=== PATIENT | female | born 1960 | race Caucasian/White ===

== ENCOUNTER → 2016-12-03 | Outpatient (CLI) | payer BC ==
[~2016-12-03] MED LIST: AMBIEN 5MG TABLE5 MG PO; ATIVAN 0.50.5 MG/TAB PO; BACTRIM DS 8001 TAB PO; CENESTIN0.9 MG PO; CENESTIN1.25 MG PO; CEPHALEXIN500 M1 PO; DIFLUCAN150 MG PO; DOXYCYCLINE 10100 MG PO; HORMONE REPLACEMENT; LIPITOR20 MG PO; PHENERGAN 25 TA25 MG PO; VESICARE 5MG5 MG PO; ZOCOR; ZOLOFT; ZOLOFT 100MG100 MG PO; [UNRECOGNIZED DRUG - REMARK]
== END ==
LOC: MC.RAD 08:14
DX: Z12.31 Encounter for screening mammogram for malignant neoplasm of breast (principal); Z80.3 Family history of malignant neoplasm of breast

== ENCOUNTER 2017-10-02 10:06 | Emergency (ER) | payer BC ==
[2008-04-23 06:02] VITALS: BP 121/64
[~2017-10-02] VITALS: Ht 170.2 cm; Wt 56.8 kg
[2017-10-02] MEDS ORDERED: LINZESS290CAP PO (10:53)
[2017-10-02] MEDS ORDERED: KLONOPIN 0.5MG0.5 MG PO (11:09)
[2017-10-02] MEDS ORDERED: CYMBALTA 60MG60 MG PO (11:10)
[2017-10-02] MEDS ORDERED: TOPAMAX 25MG25 M1 PO (11:11)
[2017-10-02] MEDS ORDERED: WELLBUTRIN SR100 M1 PO (11:11)
[2017-10-02] MEDS ORDERED: MYRBETR50MG PO (11:12)
[2017-10-02] MEDS ORDERED: COMPAZINE25 MG/SUPP RC (11:12)
[2017-10-02] MEDS ORDERED: PREMARIN 1.251.25 MG PO (11:13)
[2017-10-02 11:14] LABS: MEAN CELL VOLUME 97 fl (80.0-100.0); MEAN CORPUSCULAR HGB CONC 34 g/dl (33.0-37.0); MEAN PLATELET VOLUME 10.3 fl (7.4-10.4); PLATELET COUNT 216 K/mm3 (130-400); RED BLOOD COUNT 3.51 M/mm3 (4.10-5.30); REDCELL DISTRIBUTION WIDTH-CV 12.1 % (11.5-14.5)
[2017-10-02] MEDS ORDERED: OMEGA-31 SGL PO (11:14)
[2017-10-02 11:15] LABS: HEMATOCRIT 33.9 % (37.0-47.0); HEMOGLOBIN 11.5 g/dl (12.5-16.0); MEAN CORPUSCULAR HEMOGLOBIN 33 pg (27.0-31.0)
[2017-10-02] MEDS ORDERED: VITAMIND3 5000 PO (11:15)
[2017-10-02] MEDS ORDERED: BIOTIN2500 MCG PO (11:15)
[2017-10-02] MEDS ORDERED: THE MEDICINE S200 M2 PO (11:16)
[2017-10-02] MEDS ORDERED: STOOL SOFTENER100 M2 PO (11:16)
[2017-10-02] MEDS ORDERED: MULTI VITAMINS1 TAB PO (11:16)
[2017-10-02] MEDS ORDERED: DULCOLAX TAB5 MG PO (11:17)
[2017-10-02] MEDS ORDERED: VITAMIN B125000 MCG PO (11:17)
[2017-10-02 11:27] LABS: ALBUMIN 3.6 gm/dL (3.5-5.0); BILIRUBIN,TOTAL 0.6 mg/dL (0.0-1.0); C-REACTIVE PROTEIN 5.1 mg/dL (0.0-0.9); CREATININE, serum 0.77 mg/dL (0.52-1.25); POTASSIUM 3.7 mmol/L (3.4-5.0); TOTAL PROTEIN 6.6 gm/dL (6.4-8.2)
[2017-10-02 11:32] LABS: CALCIUM 8.5 mg/dL (8.4-10.2); INFLUENZA A NEGATIVE; INFLUENZA B NEGATIVE
[2017-10-02 11:37] LABS: BAND 26 % (0-10); LYMPHOCYTE 4 % (20.0-51.0); NEUTROPHILS 64 % (42.0-75.2)
[2017-10-02 11:38] LABS: PLATELET ESTIMATE NORMAL (NORMAL)
[2017-10-02] MEDS ORDERED: LEVAQUIN 750MG750 M1 PO ×2 (12:25→12:53)
[2017-10-02 12:46] VITALS: BP 101/60; PULSE 81; TEMP 98.3
== END 2017-10-02 12:56 | disposition home or self-care (01) ==
LOC: COL.ER 10:06
PROVIDERS: Emergency Medicine
DX: J18.1 Lobar pneumonia, unspecified organism (principal); Z85.038 Personal history of other malignant neoplasm of large intestine; Z90.710 Acquired absence of both cervix and uterus; Z98.51 Tubal ligation status
CPT/HCPCS: J7030; Q9967

== ENCOUNTER → 2017-12-14 | Outpatient (CLI) | payer BC ==
[~2017-12-14] MED LIST changes: +BIOTIN2500 MCG PO; +COMPAZINE25 MG/SUPP RC; +CYMBALTA 60MG60 MG PO; +DULCOLAX TAB5 MG PO; +KLONOPIN 0.5MG0.5 MG PO; +LEVAQUIN 750MG750 M1 PO; +LINZESS290CAP PO; +MULTI VITAMINS1 TAB PO; +MYRBETR50MG PO; +OMEGA-31 SGL PO; +PREMARIN 1.251.25 MG PO; +STOOL SOFTENER100 M2 PO; +THE MEDICINE S200 M2 PO; +TOPAMAX 25MG25 M1 PO; +VITAMIN B125000 MCG PO; +VITAMIND3 5000 PO; +WELLBUTRIN SR100 M1 PO
== END ==
LOC: MC.RAD 10:34
DX: Z12.31 Encounter for screening mammogram for malignant neoplasm of breast (principal)

== ENCOUNTER 2017-12-29 13:00 | Outpatient (RCR) | payer BC | END 2018-03-08 | disposition home or self-care (01) | LOC: MKS.ESL.OT | DX: M25.522 Pain in left elbow (principal) ==

== ENCOUNTER → 2018-01-27 | Outpatient (CLI) | payer BC | LOC: COL.RAD 09:12 | DX: M25.522 Pain in left elbow (principal) | CPT/HCPCS: J3301; Q9967 ==

== ENCOUNTER → 2018-02-14 | Outpatient (CLI) | payer BC | LOC: COL.VAS 10:44 | DX: M79.604 Pain in right leg (principal); M79.89 Other specified soft tissue disorders ==

== ENCOUNTER → 2018-03-16 | Outpatient (CLI) | payer BC | LOC: COL.RAD 08:42 | DX: M25.571 Pain in right ankle and joints of right foot (principal) | CPT/HCPCS: J3301; Q9967 ==

== ENCOUNTER → 2018-05-16 | Outpatient (CLI) | payer BC | LOC: COL.RAD 12:49 | DX: M43.12 Spondylolisthesis, cervical region (principal); Z98.890 Other specified postprocedural states; Z96.7 Presence of other bone and tendon implants ==

== ENCOUNTER → 2018-12-19 | Outpatient (CLI) | payer BC | LOC: MC.RAD 09:31 | DX: Z12.31 Encounter for screening mammogram for malignant neoplasm of breast (principal); N63.11 Unspecified lump in the right breast, upper outer quadrant ==

== ENCOUNTER → 2018-12-22 | Outpatient (CLI) | payer BC | LOC: MC.RAD 08:45 | DX: N63.10 Unspecified lump in the right breast, unspecified quadrant (principal) ==

== ENCOUNTER 2019-08-09 13:45 | Outpatient (RCR) | payer BC | END 2019-11-07 | disposition still patient (30) | LOC: WSST | DX: R13.12 Dysphagia, oropharyngeal phase (principal) ==

== ENCOUNTER → 2019-08-15 | Outpatient (CLI) | payer BC | LOC: COL.RAD 14:41 | DX: R13.12 Dysphagia, oropharyngeal phase (principal) ==

== ENCOUNTER 2019-08-18 09:04 | Emergency (ER) | payer BC ==
[2008-04-23 06:02] VITALS: BP 121/64
[~2019-08-18] VITALS: Ht 167.6 cm; Wt 51.8 kg
[2019-08-18 09:10] VITALS: TEMP 97.7
[2019-08-18 09:48] LABS: BASO % 0.5 % (0.0-2.0); EOS % 0.7 % (0-4.0); GRAN # 3.4 (1.4-6.5); GRAN % 61.1 % (42.2-75.2); HEMATOCRIT 33.5 % (37.0-47.0); LYMPH # 1.8 (1.2-3.4); LYMPH % 31.9 % (20.0-51.0); MEAN CELL VOLUME 96 fl (80.0-100.0); MEAN CORPUSCULAR HEMOGLOBIN 31 pg (27.0-31.0); MEAN CORPUSCULAR HGB CONC 33 g/dl (33.0-37.0); MEAN PLATELET VOLUME 10.9 fl (7.4-10.4); MONO # 0.3 (0.1-0.6); MONO % 5.6 % (1.7-9.3); PLATELET COUNT 235 K/mm3 (130-400); REDCELL DISTRIBUTION WIDTH-CV 13.2 % (11.5-14.5)
[2019-08-18 09:56] LABS: ALANINE AMINOTRANSFERASE 18 U/L (9-52); ALBUMIN 3.8 gm/dL (3.5-5.0); ALKALINE PHOSPHATASE 109 U/L (50-136); ANION GAP 7 mmol/L (7-16); AST,SGOT 19 U/L (15-37); BILIRUBIN,TOTAL 0.3 mg/dL (0.0-1.0); BLOOD UREA NITROGEN 11 mg/dL (7-17); C-REACTIVE PROTEIN 1.5 mg/dL (0.0-0.9); CALCIUM 8.3 mg/dL (8.4-10.2); CARBON DIOXIDE 25 mmol/L (22-30); CHLORIDE 106 mmol/L (98-107); CREATININE, serum 0.76 (0.52-1.25); GLUCOSE 68 mg/dL (74-106); LIPASE 140 U/L (23-300); POTASSIUM 3.3 mmol/L (3.4-5.0); SODIUM 138 mmol/L (137-145); TOTAL PROTEIN 6.7 gm/dL (6.4-8.2)
[2019-08-18 10:05] LABS: TROPONIN-I < 0.012 ng/mL (0.000-0.035)
[2019-08-18 13:04] VITALS: BP 118/81; PULSE 78
== END 2019-08-18 13:07 | disposition home or self-care (01) ==
LOC: COL.ER 09:04
PROVIDERS: Emergency Medicine
DX: R42 Dizziness and giddiness (principal); E87.6 Hypokalemia; E16.2 Hypoglycemia, unspecified
CPT/HCPCS: J1885; J2405; J7040

== ENCOUNTER → 2019-08-28 | Outpatient (CLI) | payer BC | LOC: COL.RAD 12:52 | DX: M18.11 Unilateral primary osteoarthritis of first carpometacarpal joint, right hand (principal); M18.12 Unilateral primary osteoarthritis of first carpometacarpal joint, left hand | CPT/HCPCS: J3301; Q9967 ==

== ENCOUNTER 2019-11-25 18:19 | Emergency (ER) | payer BC ==
[2008-04-23 06:02] VITALS: BP 121/64
[~2019-11-25] VITALS: Ht 167.6 cm; Wt 54.5 kg
[2019-11-25 18:24] VITALS: TEMP 98.3
[2019-11-25 19:12] VITALS: BP 117/58; PULSE 77
== END 2019-11-25 19:12 | disposition home or self-care (01) ==
LOC: COL.ER 18:19
DX: S06.0X0A Concussion without loss of consciousness, initial encounter (principal); S00.83XA Contusion of other part of head, initial encounter; F41.9 Anxiety disorder, unspecified; R40.2412 Glasgow coma scale score 13-15, at arrival to emergency department; Z87.891 Personal history of nicotine dependence; Z85.038 Personal history of other malignant neoplasm of large intestine; W10.9XXA Fall (on) (from) unspecified stairs and steps, initial encounter; W22.8XXA Striking against or struck by other objects, initial encounter

== ENCOUNTER → 2020-01-23 | Outpatient (CLI) | payer BC | LOC: MC.RAD 12-21 07:15 | DX: Z12.31 Encounter for screening mammogram for malignant neoplasm of breast (principal) ==

== ENCOUNTER 2020-10-18 16:36 | Emergency (ER) | payer BC ==
[2008-04-23 06:02] VITALS: BP 121/64
[~2020-10-18] VITALS: Ht 167.6 cm; Wt 50.0 kg
[2020-10-18 16:45] VITALS: TEMP 97.9
[2020-10-18 17:08] LABS: BASO % 0.5 % (0.0-2.0); EOS # 0.1 (0.0-0.7); EOS % 1.7 % (0-4.0); GRAN # 4.2 (1.4-6.5); GRAN % 71.1 % (42.2-75.2); HEMOGLOBIN 11.3 g/dl (12.5-16.0); LYMPH # 1.3 (1.2-3.4); LYMPH % 22.5 % (20.0-51.0); MEAN CELL VOLUME 97 fl (80.0-100.0); MEAN CORPUSCULAR HEMOGLOBIN 32 pg (27.0-31.0); MEAN CORPUSCULAR HGB CONC 33 g/dl (33.0-37.0); MEAN PLATELET VOLUME 10.2 fl (7.4-10.4); MONO # 0.2 (0.1-0.6); PLATELET COUNT 247 K/mm3 (130-400); RED BLOOD COUNT 3.55 M/mm3 (4.10-5.30); REDCELL DISTRIBUTION WIDTH-CV 12.7 % (11.5-14.5)
[2020-10-18 17:10] LABS: HEMATOCRIT 34.3 % (37.0-47.0)
[2020-10-18 17:17] LABS: ALANINE AMINOTRANSFERASE 15 U/L (4-34); ALBUMIN 3.7 gm/dL (3.5-5.0); ALKALINE PHOSPHATASE 104 U/L (50-136); ANION GAP 7 mmol/L (7-16); AST,SGOT 24 U/L (15-37); BILIRUBIN,TOTAL 0.3 mg/dL (0.0-1.0); BLOOD UREA NITROGEN 15 mg/dL (7-17); CALCIUM 8.3 mg/dL (8.4-10.2); CARBON DIOXIDE 24 mmol/L (22-30); CHLORIDE 105 mmol/L (98-107); CREATININE, serum 0.78 (0.52-1.25); GLUCOSE 88 mg/dL (74-106); POTASSIUM 3.9 mmol/L (3.4-5.0); SODIUM 136 mmol/L (137-145); TOTAL PROTEIN 6.4 gm/dL (6.4-8.2)
[2020-10-18 17:35] LABS: TROPONIN-I < 0.012 ng/mL (0.000-0.035)
[2020-10-18] MEDS ORDERED: PREDNISONE20 MG PO (18:53)
[2020-10-18 19:30] VITALS: BP 133/74; PULSE 88
== END 2020-10-18 19:35 | disposition home or self-care (01) ==
LOC: COL.ER 16:36
PROVIDERS: Nurse Practitioner Primary Care
DX: J44.1 Chronic obstructive pulmonary disease with (acute) exacerbation (principal); Z20.822 Contact with and (suspected) exposure to COVID-19; Z87.891 Personal history of nicotine dependence; Z90.710 Acquired absence of both cervix and uterus
CPT/HCPCS: J2930; Q9967

== ENCOUNTER → 2020-10-30 | Outpatient (CLI) | payer BC ==
[~2020-10-30] MED LIST changes: +PREDNISONE20 MG PO
== END ==
LOC: COL.PUL 07:51
DX: R06.00 Dyspnea, unspecified (principal); Z87.891 Personal history of nicotine dependence

== ENCOUNTER → 2020-11-21 | Outpatient (CLI) | payer BC ==
[~2020-11-21] MED LIST changes: +NORCO 325 MG-51 TAB PO; +REGLAN 5MG T5 MG/TAB PO
[2020-11-21 12:23] LABS: BASO % 0.4 % (0.0-2.0); EOS # 0.1 (0.0-0.7); EOS % 1.6 % (0-4.0); GRAN % 59.4 % (42.2-75.2); HEMOGLOBIN 11.3 g/dl (12.5-16.0); LYMPH # 1.6 (1.2-3.4); LYMPH % 31.9 % (20.0-51.0); MEAN CELL VOLUME 97 fl (80.0-100.0); MEAN CORPUSCULAR HEMOGLOBIN 31 pg (27.0-31.0); MEAN CORPUSCULAR HGB CONC 32 g/dl (33.0-37.0); MEAN PLATELET VOLUME 9.8 fl (7.4-10.4); MONO # 0.3 (0.1-0.6); MONO % 6.5 % (1.7-9.3); PLATELET COUNT 255 K/mm3 (130-400); RED BLOOD COUNT 3.64 M/mm3 (4.10-5.30); REDCELL DISTRIBUTION WIDTH-CV 12.6 % (11.5-14.5)
[2020-11-21 12:24] LABS: HEMATOCRIT 35.3 % (37.0-47.0)
[2020-11-21 12:51] LABS: ERYTHROCYTE SEDIMENTATION RATE 6 mm/hr (0-30)
== END ==
LOC: COL.LAB 11:54
PROVIDERS: Orthopaedic Surgery
DX: Z96.651 Presence of right artificial knee joint (principal)

== ENCOUNTER 2020-12-09 12:43 | Emergency (ER) | payer BC ==
[~2020-12-09] VITALS: Ht 167.6 cm; Wt 51.8 kg
[~2020-12-09 12:43] MED LIST changes: -NORCO 325 MG-51 TAB PO; -REGLAN 5MG T5 MG/TAB PO
[2020-12-09 12:53] VITALS: TEMP 97.6
[2020-12-09 13:14] LABS: BASO % 0.5 % (0.0-2.0); EOS % 0.6 % (0-4.0); GRAN % 76.2 % (42.2-75.2); HEMOGLOBIN 11.4 g/dl (12.5-16.0); LYMPH # 1.1 (1.2-3.4); LYMPH % 17.5 % (20.0-51.0); MEAN CELL VOLUME 93 fl (80.0-100.0); MEAN CORPUSCULAR HEMOGLOBIN 32 pg (27.0-31.0); MEAN CORPUSCULAR HGB CONC 34 g/dl (33.0-37.0); MEAN PLATELET VOLUME 10.7 fl (7.4-10.4); MONO # 0.3 (0.1-0.6); MONO % 4.3 % (1.7-9.3); PLATELET COUNT 216 K/mm3 (130-400); RED BLOOD COUNT 3.61 M/mm3 (4.10-5.30)
[2020-12-09 13:27] LABS: ALANINE AMINOTRANSFERASE 12 U/L (4-34); ALBUMIN 3.5 gm/dL (3.5-5.0); ALKALINE PHOSPHATASE 127 U/L (50-136); ANION GAP 6 mmol/L (7-16); AST,SGOT 24 U/L (15-37); BILIRUBIN,TOTAL 0.4 mg/dL (0.0-1.0); BLOOD UREA NITROGEN 14 mg/dL (7-17); CARBON DIOXIDE 26 mmol/L (22-30); CHLORIDE 106 mmol/L (98-107); CREATININE, serum 0.77 (0.52-1.25); GLUCOSE 86 mg/dL (74-106); HEMATOCRIT 33.6 % (37.0-47.0); LIPASE 134 U/L (23-300); POTASSIUM 3.8 mmol/L (3.4-5.0); SODIUM 138 mmol/L (137-145); TOTAL PROTEIN 6.4 gm/dL (6.4-8.2)
[2020-12-09 13:39] LABS: TROPONIN-I < 0.012 ng/mL (0.000-0.035)
[2020-12-09] MEDS ORDERED: REGLAN 5MG T5 MG/TAB PO (13:56)
[2020-12-09 14:07] VITALS: BP 112/63; PULSE 82
== END 2020-12-09 14:07 | disposition home or self-care (01) ==
LOC: COL.ER 12:43
PROVIDERS: Emergency Medicine
DX: U07.1 COVID-19 (principal); R55 Syncope and collapse
CPT/HCPCS: J1200; J2765; J7030

== ENCOUNTER → 2021-01-03 | Outpatient (CLI) | payer BC ==
[~2021-01-03] MED LIST changes: +NORCO 325 MG-51 TAB PO; +REGLAN 5MG T5 MG/TAB PO
== END ==
LOC: COL.PUL 12:34
DX: R06.00 Dyspnea, unspecified (principal); R09.89 Other specified symptoms and signs involving the circulatory and respiratory systems; Z87.891 Personal history of nicotine dependence
CPT/HCPCS: J7674

== ENCOUNTER → 2021-01-21 | Outpatient (CLI) | payer BC | LOC: MC.RAD 09:51 | DX: Z12.31 Encounter for screening mammogram for malignant neoplasm of breast (principal) ==

== ENCOUNTER → 2021-03-05 | Outpatient (CLI) | payer BC ==
[2021-03-05 12:32] LABS: BASO % 0.4 % (0.0-2.0); EOS # 0.1 (0.0-0.7); EOS % 1.2 % (0-4.0); GRAN # 3.1 (1.4-6.5); GRAN % 62.6 % (42.2-75.2); HEMOGLOBIN 11.2 g/dl (12.5-16.0); LYMPH # 1.5 (1.2-3.4); LYMPH % 30.3 % (20.0-51.0); MEAN CELL VOLUME 93 fl (80.0-100.0); MEAN CORPUSCULAR HEMOGLOBIN 30 pg (27.0-31.0); MEAN CORPUSCULAR HGB CONC 33 g/dl (33.0-37.0); MEAN PLATELET VOLUME 10.1 fl (7.4-10.4); MONO # 0.3 (0.1-0.6); MONO % 5.3 % (1.7-9.3); PLATELET COUNT 229 K/mm3 (130-400); REDCELL DISTRIBUTION WIDTH-CV 12.8 % (11.5-14.5)
[2021-03-05 12:34] LABS: HEMATOCRIT 34.5 % (37.0-47.0)
[2021-03-05 12:58] LABS: ERYTHROCYTE SEDIMENTATION RATE 5 mm/hr (0-30)
== END ==
LOC: COL.LAB 11:50
PROVIDERS: Physician Assistant
DX: M25.561 Pain in right knee (principal); Z96.651 Presence of right artificial knee joint

== ENCOUNTER 2021-05-07 11:42 | Emergency (ER) | payer BC ==
[~2021-05-07] VITALS: Ht 167.6 cm; Wt 54.5 kg
[~2021-05-07 11:42] MED LIST changes: -NORCO 325 MG-51 TAB PO
[2021-05-07] MEDS ORDERED: CEPHALEXIN500 M1 PO (13:43)
[2021-05-07] MEDS ORDERED: NORCO 325 MG-51 TAB PO (13:44)
[2021-05-07 15:20] VITALS: BP 136/64; PULSE 64; TEMP 97.2
== END 2021-05-07 15:17 | disposition home or self-care (01) ==
LOC: COL.ER 11:42
DX: S92.421A Displaced fracture of distal phalanx of right great toe, initial encounter for closed fracture (principal); Z98.890 Other specified postprocedural states; W20.8XXA Other cause of strike by thrown, projected or falling object, initial encounter

== ENCOUNTER → 2022-01-28 | Outpatient (CLI) | payer BC ==
[~2022-01-28] MED LIST changes: +NORCO 325 MG-51 TAB PO
== END ==
LOC: MC.RAD 10:48
DX: Z12.31 Encounter for screening mammogram for malignant neoplasm of breast (principal)

== ENCOUNTER 2023-10-29 05:26 | Day surgery (SDC) | payer BC ==
[~2023-10-29] VITALS: Ht 170.2 cm; Wt 61.6 kg
[~2023-10-29 05:26] MED LIST changes: +ANTIVERT 25MG25 MG PO; +LR 1,000 ML IV SCH; +MOTEGRITY2 MG PO; +Ondansetron 4 MG/2 ML VIAL IV PRN; +PRIL40 PO; +REMERON30 MG PO; +VITAMINC1000TA
[2023-10-29] MEDS ORDERED: MASON NATURAL2000 IU PO (05:41)
[2023-10-29] MEDS ORDERED: B-121000 MCG PO (05:42)
[2023-10-29] MEDS ORDERED: ONE-A-DAY WOME0.4 MG PO (05:43)
[2023-10-29] MEDS ORDERED: CALCIUM 600600 MG PO (05:46)
[2023-10-29 06:01] VITALS: BP 106/80; PULSE 88; TEMP 96.3
--- NOTE | 2023-10-29 06:22 | NUR ---
0531 Pt ambulatory to bay 1 with a steady gait, breathing even and unlabored. Pt is alert and oriented. Consents reviewed and signed by pt. IV established. LR infusing via gravity at KVO. Call light in reach. Warm balnkets provided.
[2023-10-29] MEDS ORDERED: Lidocaine PF 2% (20 MG/ML) 5 ML VIAL ONE (06:50)
[2023-10-29 07:35] VITALS: BP 103/68; PULSE 83; TEMP 98
[2023-10-29 07:50] VITALS: BP 102/77; PULSE 73
[2023-10-29 08:05] VITALS: BP 106/76; PULSE 67
--- NOTE | 2023-10-29 17:29 | NUR ---
[id number]: PT TO ENDO RECOVERY BAY FROM ENDO ANTOINETTE S/P COLONOSCPY W/ POLYPECTOMY A&O, PLACED ON MONITOR, VSS ON RA RECEIVED REPORT AND ASSUMED CARE OF PT FROM ENDO RN PLAN TO CALL DTR WHEN READY TO DC HOME - WILL DRIVE PT PROVIDED FOOD/FLUIDS, TOLERATING WELL MD IN TO SEE PT POST-PROCEDURE PT HAS REMAINED A&O, NAD, VSS ON RA, TOLERATING PO, IS WITHOUT SIGNIFICANT COMPLAINT, WITH SAFE GAIT THRU OUT STAY IV D/C'D. D/C INSTRUCTIONS, ANY FOLLOW UP REVIEWED AND HANDED TO PT. ALL QUESTIONS AND CONCERNS ADDRESSED TO PT SATISFACTION. TAKEN TO EXIT VIA W/C WITH ALL BELONGINGS AND PAPERWORK IN HAND, ASSISTED INTO PASSENGER SEAT OF POV. DTR TO DRIVE HOME.
== END 2023-10-29 08:15 | disposition home or self-care (01) ==
LOC: SDCO 05:26
DX: Z12.11 Encounter for screening for malignant neoplasm of colon (principal); D12.3 Benign neoplasm of transverse colon; D12.5 Benign neoplasm of sigmoid colon; D50.0 Iron deficiency anemia secondary to blood loss (chronic); Z85.038 Personal history of other malignant neoplasm of large intestine
CPT/HCPCS: J2704; J7120

== ENCOUNTER → 2024-04-18 | Outpatient (CLI) | payer BC ==
[~2024-04-18] MED LIST changes: +B-121000 MCG PO; +CALCIUM 600600 MG PO; -LR 1,000 ML IV SCH; +MASON NATURAL2000 IU PO; +ONE-A-DAY WOME0.4 MG PO; -Ondansetron 4 MG/2 ML VIAL IV PRN
== END ==
LOC: COL.RAD 07:13
DX: M25.551 Pain in right hip (principal); Z96.641 Presence of right artificial hip joint

== ENCOUNTER → 2024-05-17 | Outpatient (CLI) | payer BC | LOC: COL.RAD 08:44 | DX: M25.551 Pain in right hip (principal) | CPT/HCPCS: A9503-JZ ==

== ENCOUNTER 2024-07-06 12:24 | Observation (INO) | payer BC ==
[~2024-07-06] VITALS: Ht 170.2 cm; Wt 61.4 kg
[2024-07-06] MEDS ORDERED: Iohexol 300 - 100 ML VIAL IV ONE (17:11)
[2024-07-06] MEDS ORDERED: Pantoprazole 80 MG in NS 100 ML IV ONE (17:15)
[2024-07-06 17:23] LABS: BASO # 0.1 K/mm3 (0.0-0.2); BASO % 0.8 % (0.0-2.0); EOS # 0.1 K/mm3 (0.0-0.7); EOS % 1.6 % (0.0-4.0); GRAN # 5.5 K/mm3 (1.4-6.5); GRAN % 70.7 % (42.2-75.2); HEMATOCRIT 38.8 % (37.0-47.0); LYMPH # 1.7 K/mm3 (1.2-3.4); LYMPH % 21.7 % (20.0-51.0); MEAN CELL VOLUME 96 fl (80.0-100.0); MEAN CORPUSCULAR HEMOGLOBIN 32 pg (27-31); MEAN CORPUSCULAR HGB CONC 34 g/dl (33.0-37.0); MEAN PLATELET VOLUME 10.5 fl (7.4-10.4); MONO # 0.4 K/mm3 (0.1-0.6); MONO % 4.8 % (1.7-9.3); PLATELET COUNT 292 K/mm3 (130-400); RED BLOOD COUNT 4.04 M/mm3 (4.10-5.30); REDCELL DISTRIBUTION WIDTH-CV 12.5 % (11.5-14.5)
[2024-07-06 17:36] LABS: ALBUMIN 3.5 g/dL (3.4-4.8); BILIRUBIN,TOTAL 0.3 mg/dL (0.2-1.2); CALCIUM 8.9 mg/dL (8.4-10.2); CREATININE, serum 0.86 mg/dL (0.57-1.11); POTASSIUM 3.6 mEq/L (3.5-4.5)
[2024-07-06 18:00] LABS: INR 0.9 (0.8-3.0); PROTHROMBIN TIME 10.2 SECONDS (9.7-12.8)
[2024-07-06] MEDS ORDERED: LR 1,000 ML IV SCH (21:15)
[2024-07-06] MEDS ORDERED: Ondansetron 4 MG/2 ML VIAL IV PRN (21:15)
[2024-07-06] MEDS ORDERED: Phenol 1.4% Spray 180 ML BOTTLE MM PRN (21:30)
[2024-07-06] MEDS ORDERED: Acetaminophen 500 MG TAB PO PRN (21:30)
--- NOTE | 2024-07-06 22:19 | NUR ---
Report recieved from SUKHJINDER Mcmullen from ED. All questions answered at this time.
[2024-07-06] MEDS ORDERED: Mirtazapine 15 MG TAB PO SCH (22:30)
--- NOTE | 2024-07-06 22:35 | NUR ---
Patient arrived to room 311 at this time with personal belongings. Rates pain at 5/10 in her throat and headache, prn tylenol given. Assisted patient to bathroom and back to bed. Patient steady on her feet. SCDs applied. Eduction provided on SCDs. Oral care completed independently. Assessment and med rec complete. IV in left AC flushes easily without complications. Oriented patient to room, call light, phone, bathroom, and bed. Denies any further needs. Call light and personal items in reach. Bed in low position.
[2024-07-06 22:36] VITALS: BP 165/81; PULSE 80; TEMP 98.3
[2024-07-07] VITALS (7 sets, daily range): BP systolic 119–165; BP diastolic 66–72; PULSE 67–77; TEMP 97.3–97.7
--- NOTE | 2024-07-07 06:16 | NUR ---
Consult called to Dr. Madrid. Recieved orders to put in EGD order set.
[2024-07-07 07:05] LABS: BASO % 0.6 % (0.0-2.0); EOS # 0.1 K/mm3 (0.0-0.7); EOS % 1.6 % (0.0-4.0); GRAN # 3.3 K/mm3 (1.4-6.5); GRAN % 66.8 % (42.2-75.2); HEMOGLOBIN 12.3 g/dl (12.5-16.0); LYMPH # 1.3 K/mm3 (1.2-3.4); MEAN CELL VOLUME 95 fl (80.0-100.0); MEAN CORPUSCULAR HEMOGLOBIN 33 pg (27-31); MEAN CORPUSCULAR HGB CONC 34 g/dl (33.0-37.0); MEAN PLATELET VOLUME 10.8 fl (7.4-10.4); MONO # 0.3 K/mm3 (0.1-0.6); MONO % 5.6 % (1.7-9.3); PLATELET COUNT 248 K/mm3 (130-400); RED BLOOD COUNT 3.78 M/mm3 (4.10-5.30); REDCELL DISTRIBUTION WIDTH-CV 12.5 % (11.5-14.5)
[2024-07-07 07:06] LABS: HEMATOCRIT 35.8 % (37.0-47.0)
[2024-07-07 07:16] LABS: CALCIUM 8.6 mg/dL (8.4-10.2); CREATININE, serum 0.8 mg/dL (0.57-1.11); POTASSIUM 3.7 mEq/L (3.5-4.5)
--- NOTE | 2024-07-07 08:28 | NUR ---
PATIENT DOWN TO ENDO FOR EGD. ALERT AND ORIENTED.
[2024-07-07] MEDS ORDERED: Topiramate 25 MG TAB PO SCH (09:00)
[2024-07-07] MEDS ORDERED: Pantoprazole 40 MG in NS 10 ML IV SCH (09:00)
[2024-07-07] MEDS ORDERED: DULoxetine 60 MG CAP PO SCH (09:00)
--- NOTE | 2024-07-07 09:36 | NUR ---
Director Strategic Planning was notified by Hospitalist that patient is ready for discharge today. SW met with patient to discuss discharge planning. Patient lives alone in [place] and sees Dr. Poon for primary care. Patient gets medications from [facility] pharmacy with no difficulties. 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 Patient does not use any DME and is independent with ADLS. Patient has two children: Justin (ph#[phone]) and Christi (ph#[phone]). Patient advised she believes she has completed a DPOA-HC that designates Justin. Patient plans to return home today. Discharge Plan: Home
--- NOTE | 2024-07-07 10:03 | NUR ---
PATIENT BACK FROM EGD AT APPROX 0930. VSS. BP 127/92, HR 68, RR 16, SPO2 100% ON RA. PATIENT ALERT AND ORIENTED, ORDERED BREAKFAST.
--- NOTE | 2024-07-07 10:34 | NUR ---
Initial visit; Patient thanked cooker pie filling for letting her know of the availability of [facility] at [facility]. She says she has had wonderful care here and is going home today. Pharmaceutical Plant Operator wished her well.
--- NOTE | 2024-07-07 10:45 | NUR ---
THIS RN PROVIDED DISCHARGE EDUCATION AND INSTRUCTIONS. ALL QUESTIONS ANSWERED. PATIENT TOLERATED BLAND/GERD DIET WELL. STUDENT NURSE TO DISCONTINUE IV TO LFA.
--- NOTE | 2024-07-07 10:53 | NUR ---
Took IV out, tip was intact. Tolerated it well.
--- NOTE | 2024-07-07 11:14 | NUR ---
PATIENT AMBULATED OFF UNIT AT APPROX 1112 BY SON AND PCT. ALL BELONGINGS WITH PATIENT
== END 2024-07-07 11:12 | disposition home or self-care (01) ==
LOC: COL.ER 12:24 → MEDICAL 21:14 → COL.ER 21:14 → MEDICAL 21:14
PROVIDERS: Emergency Medicine; Physician Assistant; ADMIT Internal Medicine
DX: K92.0 Hematemesis (principal); R04.0 Epistaxis; R51.9 Headache, unspecified; G25.0 Essential tremor; M19.90 Unspecified osteoarthritis, unspecified site; Z85.038 Personal history of other malignant neoplasm of large intestine; Z92.21 Personal history of antineoplastic chemotherapy; Z87.891 Personal history of nicotine dependence; Z79.82 Long term (current) use of aspirin; Z79.899 Other long term (current) drug therapy; Z90.49 Acquired absence of other specified parts of digestive tract
CPT/HCPCS: G0378; J2405; J2470; J2704; J7120; Q9967